=== PATIENT | male | born 1970 | race Caucasian/White ===

== ENCOUNTER → 2020-03-19 | Outpatient (CLI) | payer MEDICARE, BC ==
[~2020-03-19] MED LIST: LIDOCAINE 1% MDV 20ML VIAL As Ordered ONE; LIPI20TA PO; VELP5CHW PO; VITAD400CA FT
[2020-03-19 15:55] VITALS: BP 127/72
--- NOTE | 2020-03-21 11:30 | POST-OPPD ---
Postoperative Procedure Note Date Of Procedure: Mar 19, 2020 Time Of Procedure: 16:00 IR PermCath removal. Clinical indication: Renal failure. Now has working fistula for dialysis. The PermCath site was prepped and draped in the usual sterile fashion. Lidocaine was used for local anesthesia. The catheter cuff was dissected out of the soft tissues using blunt dissection. The catheter was removed in it's entirety. Patient tolerated the procedure well, hemostasis achieved and a sterile dressing was applied to the site. Blood loss: Less than 5 mL. Complications: None. Impression: Successful removal of PermCath. ABNG GERARDO MD Mar 21, 2020 11:30
== END ==
LOC: M IRPRO 14:05
PROVIDERS: ATTEND Radiology Diagnostic Radiology
DX: Z45.2 Encounter for adjustment and management of vascular access device (principal); N18.6 End stage renal disease

== ENCOUNTER 2020-12-15 20:22 | Emergency (ER) | payer MEDICARE, BC ==
[~2020-12-15] VITALS: Ht 167.6 cm; Wt 137.3 kg
[~2020-12-15 20:22] MED LIST changes: -LIDOCAINE 1% MDV 20ML VIAL As Ordered ONE
[2020-12-15] MEDS ORDERED: LEVO200T4 PO (20:42)
[2020-12-16] MEDS ORDERED: ONDANSETRON 4MG/2ML VIAL IV ONE (07:40)
[2020-12-16] MEDS ORDERED: NS 1,000 ML IV ONE (07:40)
[2020-12-16] MEDS ORDERED: MORPHINE 2 MG/ML 1ML VIAL (J2270) IV ONE (07:40)
[2020-12-16 09:06] LABS: BASO % 0.5 % (0.0-1.0); EOS # 0.2 10^3/uL (0.0-0.5); EOS % 2.9 % (0.0-3.0); HEMATOCRIT 31.2 % (42.0-52.0); HEMOGLOBIN 9.9 g/dl (13.5-17.5); LYMPH # 1.6 10^3/uL (1.5-5.0); LYMPH % 21.3 % (24.0-44.0); MEAN CORPUSCULAR HEMOGLOBIN 33.8 pg (27.0-33.0); MEAN CORPUSCULAR HGB CONC 31.7 g/dl (32.0-36.5); MEAN CORPUSCULAR VOLUME 106.5 fl (80.0-96.0); MONO # 0.6 10^3/uL (0.0-0.8); MONO % 7.4 % (2.0-8.0); NEUTROPHILS # 5.1 10^3/uL (1.5-8.5); NEUTROPHILS % 67.4 % (36.0-66.0); PLATELET COUNT, AUTOMATED 152 10^3/uL (150-450); RED BLOOD COUNT 2.93 10^6/uL (4.30-6.10); WHITE BLOOD COUNT 7.6 10^3/uL (4.0-10.0)
[2020-12-16 10:10] LABS: ALBUMIN 3.3 GM/DL (3.2-5.2); BILIRUBIN,DIRECT 0.2 MG/DL (0.0-0.2); BILIRUBIN,TOTAL 0.7 MG/DL (0.2-1.0); CALCIUM LEVEL 8.6 MG/DL (8.5-10.1); CREATININE FOR GFR 7.82 MG/DL (0.70-1.30); GLOMERULAR FILTRATION RATE 7.8 (>56); POTASSIUM SERUM 4.3 MEQ/L (3.5-5.1); TOTAL PROTEIN 6.6 GM/DL (6.4-8.2)
[2020-12-16 10:11] LABS: FREE T4 1.07 NG/DL (0.76-1.46); THYROID STIMULATING HORMONE 20.8 uIU/ML (0.358-3.740)
[2020-12-16] MEDS ORDERED: EMLA CREAM 5GM TUBE (LIDOCAINE/PRILOCAINE) TOP ONE (11:15)
--- NOTE | 2020-12-16 12:46 | REP ---
INDICATION: RLQ pain. COMPARISON: None. TECHNIQUE: Standard helical technique without contrast FINDINGS: The lung bases are clear. Limited evaluation of the solid intra-abdominal organs shows diffuse low density throughout the hepatic parenchyma. The liver and spleen are otherwise unremarkable. The pancreas and adrenal glands are unremarkable. There is marked right renal atrophy. The patient is status post left nephrectomy. The abdominal aorta and para-aortic regions are within normal limits. Postop changes from a ventral herniorrhaphy are noted. There is no free fluid or free air. There is thickening of the parr of the sigmoid colon with Treva sigmoidal fatty infiltration. The imaged osseous structures are within normal limits. IMPRESSION: 1. There is sigmoid colon diverticulitis. 2. There is diffuse fatty infiltration of the liver. 3. Chronic changes as described above. <Electronically signed by Dave Rothman > 12/16/20 [id number]
[2020-12-16] MEDS ORDERED: FLAG500T PO (13:45)
[2020-12-16 14:28] VITALS: BP 126/74
[2020-12-16] MEDS ORDERED: CIPR-249 PO (14:44)
== END 2020-12-16 14:56 | disposition home or self-care (01) ==
LOC: M ED 20:22
DX: K57.90 Diverticulosis of intestine, part unspecified, without perforation or abscess without bleeding (principal); I12.0 Hypertensive chronic kidney disease with stage 5 chronic kidney disease or end stage renal disease; N18.6 End stage renal disease; E03.9 Hypothyroidism, unspecified; E78.5 Hyperlipidemia, unspecified; F41.9 Anxiety disorder, unspecified; K21.9 Gastro-esophageal reflux disease without esophagitis; G47.33 Obstructive sleep apnea (adult) (pediatric); E66.9 Obesity, unspecified; Z79.899 Other long term (current) drug therapy; Z79.890 Hormone replacement therapy; Z87.891 Personal history of nicotine dependence
CPT/HCPCS: 36415; 74176; 80048; 80076; 83605; 83690; 84439; 84443; 85025; 96361; 96374; 96375; 99284; J2270; J2405

== ENCOUNTER 2021-02-19 13:04 | Inpatient (IN) | payer MEDICARE, BC ==
[~2021-02-19] VITALS: Ht 172.7 cm; Wt 138.8 kg
[~2021-02-19 13:04] MED LIST changes: +CIPR-249 PO; +FLAG500T PO; +LEVO200T4 PO
[2021-02-19] MEDS ORDERED: ALPR0.5T3 (13:19)
[2021-02-19] MEDS ORDERED: ATOR1TAB21 (13:20)
[2021-02-19] MEDS ORDERED: FOLI400T13 PO (13:21)
[2021-02-19] MEDS ORDERED: VANCOMYCIN HCL 2,000 MG in IV FLUID PLACE HOLDER 1 EA IV ONE (21:05)
[2021-02-19] MEDS ORDERED: VANCOMYCIN HCL 1,000 MG, VIAL MATE ADAPTER 1 EACH in NS 250 ML IV ONE ×2 (21:10→22:10)
[2021-02-19] MEDS ORDERED: diphenhydrAMINE 50MG/ML VIAL (J1200) IV ONE (23:40)
[2021-02-20 00:04] LABS: ALBUMIN 3.6 GM/DL (3.2-5.2); BILIRUBIN,DIRECT 0.3 MG/DL (0.0-0.2); BILIRUBIN,TOTAL 0.6 MG/DL (0.2-1.0); C REACTIVE PROTEIN QUANTITATIV 6.79 MG/DL (0.00-0.30); CALCIUM LEVEL 8.9 MG/DL (8.5-10.1); CREATININE FOR GFR 12.9 MG/DL (0.70-1.30); GLOMERULAR FILTRATION RATE 4.4 (>56); POTASSIUM SERUM 4.8 MEQ/L (3.5-5.1); TOTAL PROTEIN 7.1 GM/DL (6.4-8.2)
[2021-02-20 00:14] LABS: RSV AMPLIFICATION NEGATIVE (NEGATIVE)
[2021-02-20] MEDS ORDERED: ONDANSETRON 4MG/2ML VIAL IV PRN (00:20)
[2021-02-20] MEDS ORDERED: VANCOMYCIN HCL 1,000 MG, VIAL MATE ADAPTER 1 EACH in NS 250 ML IV SCH (01:15)
[2021-02-20] MEDS ORDERED: VANCOMYCIN INTERMITTENT/PULSE DOSING BY CLINICAL PHARMACIST PER DOSING PROTOCOL XX SCH (01:15)
[2021-02-20] MEDS ORDERED: ALPR0.5T3 PO (01:30)
[2021-02-20] MEDS ORDERED: PROAAER10 INH (01:30)
[2021-02-20] MEDS ORDERED: SYNT25TA PO (01:30)
[2021-02-20] MEDS ORDERED: VITATAB73 PO (01:30)
[2021-02-20] MEDS ORDERED: HOME MED LIST COMPLETE! XX SCH (01:30)
[2021-02-20] MEDS ORDERED: LIDO1CRE42 TOP (01:30)
[2021-02-20] MEDS ORDERED: ATOR1TAB21 PO (01:30)
[2021-02-20] MEDS ORDERED: D31000TA2 PO (01:30)
[2021-02-20] MEDS ORDERED: LEVO2TA PO (01:30)
[2021-02-20] MEDS ORDERED: VELP5CHW PO (01:30)
[2021-02-20] MEDS ORDERED: LANT1000 PO (01:30)
[2021-02-20] MEDS ORDERED: FOLI400T5 PO (01:30)
[2021-02-20] MEDS: PIPERACILLIN/TAZOBACTAM SOD 2.25 GM in D5W MINI-BAG PLUS 50 ML IV SCH ×3 (03:42→19:51)
[2021-02-20] MEDS ORDERED: ALBUTEROL 90 MCG/ACT 8GM HFA INHALER INH PRN (05:25)
[2021-02-20 06:12] LABS: BASO % 0.6 % (0.0-1.0); EOS # 0.2 10^3/uL (0.0-0.5); HEMATOCRIT 35.8 % (42.0-52.0); HEMOGLOBIN 11.3 g/dl (13.5-17.5); LYMPH # 1.6 10^3/uL (1.5-5.0); MEAN CORPUSCULAR HEMOGLOBIN 33.1 pg (27.0-33.0); MEAN CORPUSCULAR HGB CONC 31.6 g/dl (32.0-36.5); MONO # 0.5 10^3/uL (0.0-0.8); MONO % 6.6 % (2.0-8.0); NEUTROPHILS # 4.7 10^3/uL (1.5-8.5); NEUTROPHILS % 66.5 % (36.0-66.0); PLATELET COUNT, AUTOMATED 133 10^3/uL (150-450); RED BLOOD COUNT 3.41 10^6/uL (4.30-6.10)
[2021-02-20 06:31] LABS: CALCIUM LEVEL 8.2 MG/DL (8.5-10.1); CREATININE FOR GFR 13.7 MG/DL (0.70-1.30); GLOMERULAR FILTRATION RATE 4.1 (>56); POTASSIUM SERUM 4.6 MEQ/L (3.5-5.1); VANCOMYCIN RANDOM 33.1 UG/ML
[2021-02-20] MEDS ORDERED: HEPARIN SOD (PORCINE) 5000UNITS/ML 1ML VIAL/SYRINGE SQ SCH (08:00)
[2021-02-20] MEDS: LACTOBACILLUS ACIDOPHILUS CAP (BACID) PO SCH (08:53)
[2021-02-20] MEDS ORDERED: APIXABAN 5 MG TAB (ELIQUIS) PO SCH (09:00)
[2021-02-20] MEDS: SUCROFERRIC OXYHYDROXIDE 500MG CHEW TAB (VELPHORO) PO SCH ×3 (09:11→18:59)
[2021-02-20] MEDS ORDERED: SODIUM CHLORIDE 0.9% 1000ML IV PRN (09:15)
[2021-02-20] MEDS ORDERED: MIDAZOLAM INJ 2MG/2ML VIAL (J2250 PER 1MG) As Ordered ONE ×2 (11:04→11:37)
[2021-02-20] MEDS ORDERED: LIDOCAINE 1% MDV 20ML VIAL As Ordered ONE ×2 (11:04→11:19)
[2021-02-20] MEDS ORDERED: fentaNYL 100 MCG/2 ML INJECTION As Ordered ONE ×3 (11:04→13:09)
[2021-02-20] MEDS ORDERED: ISOVUE-300 61% 50ML VIAL As Ordered ONE (11:05)
[2021-02-20] MEDS ORDERED: LIDOCAINE W/EPINEPHRINE 1% 20ML VIAL As Ordered ONE (13:12)
[2021-02-20 18:45] VITALS: BP 120/66
[2021-02-20] MEDS: **VANCO AFTER HD** MISC XX SCH (19:01)
[2021-02-20] MEDS: ATORVASTATIN 20 MG TAB PO SCH (20:56)
[2021-02-20] MEDS: LEVOTHYROXINE 100MCG TABLET (0.1MG) PO SCH (20:56)
[2021-02-20] MEDS: FOLIC ACID 1 MG TAB PO SCH (20:56)
[2021-02-20] MEDS: LEVOTHYROXINE 25MCG TABLET (0.025MG) PO SCH (20:56)
[2021-02-20] MEDS: APIXABAN 5 MG TAB (ELIQUIS) PO SCH (20:56)
[2021-02-20] MEDS: VITAMIN D 1,000 INTERNATIONAL UNITS TABLET PO SCH (20:56)
[2021-02-20] MEDS ORDERED: traMADol 50 MG TAB PO ONE (22:40)
[2021-02-20 23:50] VITALS: BP 123/66
[2021-02-21] MEDS: PIPERACILLIN/TAZOBACTAM SOD 2.25 GM in D5W MINI-BAG PLUS 50 ML IV SCH ×3 (03:26→21:00)
[2021-02-21 06:00] VITALS: BP 126/63
[2021-02-21] MEDS ORDERED: SODIUM CHLORIDE 0.9% 1000ML IV PRN (07:45)
[2021-02-21] MEDS: LACTOBACILLUS ACIDOPHILUS CAP (BACID) PO SCH (08:14)
[2021-02-21] MEDS: APIXABAN 5 MG TAB (ELIQUIS) PO SCH ×2 (08:14→21:00)
[2021-02-21] MEDS: SUCROFERRIC OXYHYDROXIDE 500MG CHEW TAB (VELPHORO) PO SCH ×3 (09:00→17:13)
[2021-02-21 10:24] LABS: BASO % 0.4 % (0.0-1.0); EOS # 0.2 10^3/uL (0.0-0.5); EOS % 3.1 % (0.0-3.0); HEMOGLOBIN 10.5 g/dl (13.5-17.5); LYMPH # 1.2 10^3/uL (1.5-5.0); LYMPH % 17.5 % (24.0-44.0); MEAN CORPUSCULAR HEMOGLOBIN 32.8 pg (27.0-33.0); MEAN CORPUSCULAR HGB CONC 31.8 g/dl (32.0-36.5); MEAN CORPUSCULAR VOLUME 103.1 fl (80.0-96.0); MONO # 0.3 10^3/uL (0.0-0.8); MONO % 4.4 % (2.0-8.0); NEUTROPHILS # 5.2 10^3/uL (1.5-8.5); NEUTROPHILS % 74.2 % (36.0-66.0); PLATELET COUNT, AUTOMATED 148 10^3/uL (150-450)
[2021-02-21 11:20] LABS: CALCIUM LEVEL 8.8 MG/DL (8.5-10.1); CREATININE FOR GFR 10.6 MG/DL (0.70-1.30); GLOMERULAR FILTRATION RATE 5.5 (>56); MAGNESIUM LEVEL 2.2 MG/DL (1.8-2.4); PHOSPHORUS LEVEL 5.7 MG/DL (2.5-4.9); POTASSIUM SERUM 4.1 MEQ/L (3.5-5.1); VANCOMYCIN RANDOM 27.6 UG/ML
[2021-02-21 13:23] VITALS: BP_SYST 124; BP_SYST 129; BP_DIAS 66; BP_DIAS 73
[2021-02-21] MEDS: **VANCO AFTER HD** MISC XX SCH (15:42)
[2021-02-21] MEDS: VITAMIN D 1,000 INTERNATIONAL UNITS TABLET PO SCH (21:00)
[2021-02-21] MEDS: LEVOTHYROXINE 100MCG TABLET (0.1MG) PO SCH (21:00)
[2021-02-21] MEDS: ATORVASTATIN 20 MG TAB PO SCH (21:00)
[2021-02-21] MEDS: LEVOTHYROXINE 25MCG TABLET (0.025MG) PO SCH (21:00)
[2021-02-21] MEDS: FOLIC ACID 1 MG TAB PO SCH (21:00)
[2021-02-21 22:00] VITALS: BP 133/75
[2021-02-22] MEDS: PIPERACILLIN/TAZOBACTAM SOD 2.25 GM in D5W MINI-BAG PLUS 50 ML IV SCH ×2 (04:53→10:29)
[2021-02-22 06:00] VITALS: BP 132/74
[2021-02-22 08:28] LABS: BASO # 0.1 10^3/uL (0.0-0.2); BASO % 0.7 % (0.0-1.0); EOS # 0.3 10^3/uL (0.0-0.5); HEMATOCRIT 35.1 % (42.0-52.0); LYMPH # 1.8 10^3/uL (1.5-5.0); LYMPH % 24.5 % (24.0-44.0); MEAN CORPUSCULAR HEMOGLOBIN 32.6 pg (27.0-33.0); MEAN CORPUSCULAR HGB CONC 31.3 g/dl (32.0-36.5); MEAN CORPUSCULAR VOLUME 104.2 fl (80.0-96.0); MONO # 0.5 10^3/uL (0.0-0.8); NEUTROPHILS # 4.6 10^3/uL (1.5-8.5); NEUTROPHILS % 63.3 % (36.0-66.0); PLATELET COUNT, AUTOMATED 169 10^3/uL (150-450); RED BLOOD COUNT 3.37 10^6/uL (4.30-6.10); WHITE BLOOD COUNT 7.3 10^3/uL (4.0-10.0)
[2021-02-22] MEDS: LACTOBACILLUS ACIDOPHILUS CAP (BACID) PO SCH (08:45)
[2021-02-22] MEDS: APIXABAN 5 MG TAB (ELIQUIS) PO SCH ×2 (08:45→20:47)
[2021-02-22] MEDS: SUCROFERRIC OXYHYDROXIDE 500MG CHEW TAB (VELPHORO) PO SCH ×3 (08:46→17:57)
[2021-02-22 08:54] LABS: CALCIUM LEVEL 9.3 MG/DL (8.5-10.1); CREATININE FOR GFR 10.4 MG/DL (0.70-1.30); GLOMERULAR FILTRATION RATE 5.6 (>56); POTASSIUM SERUM 4.8 MEQ/L (3.5-5.1)
[2021-02-22] MEDS: MORPHINE 2 MG/ML 1ML VIAL (J2270) IV PRN (10:21)
[2021-02-22 14:00] VITALS: BP 135/72
[2021-02-22] MEDS: **VANCO AFTER HD** MISC XX SCH (15:39)
[2021-02-22 19:18] VITALS: BP 142/72
[2021-02-22] MEDS: VITAMIN D 1,000 INTERNATIONAL UNITS TABLET PO SCH (20:47)
[2021-02-22] MEDS: LEVOTHYROXINE 25MCG TABLET (0.025MG) PO SCH (20:47)
[2021-02-22] MEDS: FOLIC ACID 1 MG TAB PO SCH (20:47)
[2021-02-22] MEDS: LEVOTHYROXINE 100MCG TABLET (0.1MG) PO SCH (20:47)
[2021-02-22] MEDS: ATORVASTATIN 20 MG TAB PO SCH (20:47)
[2021-02-23] MEDS: SUCROFERRIC OXYHYDROXIDE 500MG CHEW TAB (VELPHORO) PO SCH ×3 (05:17→17:55)
[2021-02-23 06:00] VITALS: BP 148/76
[2021-02-23] MEDS: LACTOBACILLUS ACIDOPHILUS CAP (BACID) PO SCH ×2 (06:20→11:54)
[2021-02-23 06:36] LABS: BASO # 0.1 10^3/uL (0.0-0.2); BASO % 0.7 % (0.0-1.0); EOS # 0.3 10^3/uL (0.0-0.5); EOS % 4.1 % (0.0-3.0); HEMATOCRIT 33.1 % (42.0-52.0); HEMOGLOBIN 10.4 g/dl (13.5-17.5); LYMPH # 1.8 10^3/uL (1.5-5.0); LYMPH % 25.1 % (24.0-44.0); MEAN CORPUSCULAR HEMOGLOBIN 32.5 pg (27.0-33.0); MEAN CORPUSCULAR HGB CONC 31.4 g/dl (32.0-36.5); MEAN CORPUSCULAR VOLUME 103.4 fl (80.0-96.0); MONO # 0.5 10^3/uL (0.0-0.8); MONO % 7.5 % (2.0-8.0); NEUTROPHILS # 4.4 10^3/uL (1.5-8.5); NEUTROPHILS % 61.3 % (36.0-66.0); PLATELET COUNT, AUTOMATED 175 10^3/uL (150-450); WHITE BLOOD COUNT 7.1 10^3/uL (4.0-10.0)
[2021-02-23 07:08] LABS: CALCIUM LEVEL 9.4 MG/DL (8.5-10.1); CREATININE FOR GFR 13.4 MG/DL (0.70-1.30); GLOMERULAR FILTRATION RATE 4.2 (>56); MAGNESIUM LEVEL 2.6 MG/DL (1.8-2.4); PHOSPHORUS LEVEL 5.1 MG/DL (2.5-4.9); POTASSIUM SERUM 5.3 MEQ/L (3.5-5.1)
[2021-02-23] MEDS ORDERED: SODIUM CHLORIDE 0.9% 1000ML IV PRN (08:05)
[2021-02-23] MEDS ORDERED: LIDOCAINE 1% SDV 5ML VIAL SC PRN (08:05)
[2021-02-23] MEDS ORDERED: MIDAZOLAM INJ 2MG/2ML VIAL (J2250 PER 1MG) As Ordered ONE ×2 (08:15→09:45)
[2021-02-23] MEDS ORDERED: fentaNYL 100 MCG/2 ML INJECTION As Ordered ONE ×2 (08:15→09:56)
[2021-02-23] MEDS ORDERED: LIDOCAINE 1% MDV 20ML VIAL As Ordered ONE ×2 (08:16→09:56)
[2021-02-23] MEDS: APIXABAN 5 MG TAB (ELIQUIS) PO SCH ×2 (11:55→21:00)
[2021-02-23] MEDS: MORPHINE 2 MG/ML 1ML VIAL (J2270) IV PRN (11:56)
[2021-02-23] MEDS: **VANCO AFTER HD** MISC XX SCH (16:00)
[2021-02-23 16:28] VITALS: BP 141/75
[2021-02-23 16:48] VITALS: BP 159/97
[2021-02-23] MEDS ORDERED: traMADol 50 MG TAB PO PRN (19:15)
[2021-02-23] MEDS: VITAMIN D 1,000 INTERNATIONAL UNITS TABLET PO SCH (20:51)
[2021-02-23] MEDS: FOLIC ACID 1 MG TAB PO SCH (20:51)
[2021-02-23] MEDS: LEVOTHYROXINE 100MCG TABLET (0.1MG) PO SCH (20:51)
[2021-02-23] MEDS: LEVOTHYROXINE 25MCG TABLET (0.025MG) PO SCH (20:51)
[2021-02-23] MEDS: ATORVASTATIN 20 MG TAB PO SCH (20:51)
[2021-02-23 21:14] LABS: HEMATOCRIT 34.9 % (42.0-52.0); HEMOGLOBIN 11.1 g/dl (13.5-17.5)
[2021-02-23 21:49] LABS: CALCIUM LEVEL 8.9 MG/DL (8.5-10.1); CREATININE FOR GFR 9.29 MG/DL (0.70-1.30); GLOMERULAR FILTRATION RATE 6.4 (>56)
[2021-02-23 21:56] LABS: POTASSIUM SERUM 4.1 MEQ/L (3.5-5.1)
[2021-02-23 22:00] VITALS: BP 161/69
[2021-02-24 06:00] VITALS: BP 134/57
[2021-02-24] MEDS ORDERED: SODIUM CHLORIDE 0.9% 1000ML IV PRN (07:45)
[2021-02-24] MEDS ORDERED: LIDOCAINE 1% SDV 5ML VIAL SC PRN (07:45)
[2021-02-24 08:30] VITALS: BP 101/75
[2021-02-24] MEDS: SUCROFERRIC OXYHYDROXIDE 500MG CHEW TAB (VELPHORO) PO SCH ×2 (09:27→14:27)
[2021-02-24 10:34] LABS: HEMATOCRIT 31.7 % (42.0-52.0); HEMOGLOBIN 9.9 g/dl (13.5-17.5); MEAN CORPUSCULAR HEMOGLOBIN 32.4 pg (27.0-33.0); MEAN CORPUSCULAR HGB CONC 31.2 g/dl (32.0-36.5); MEAN CORPUSCULAR VOLUME 103.6 fl (80.0-96.0); PLATELET COUNT, AUTOMATED 207 10^3/uL (150-450); RED BLOOD COUNT 3.06 10^6/uL (4.30-6.10); WHITE BLOOD COUNT 8.1 10^3/uL (4.0-10.0)
[2021-02-24 11:23] LABS: ALBUMIN 3.1 GM/DL (3.2-5.2); CALCIUM LEVEL 8.9 MG/DL (8.5-10.1); CREATININE FOR GFR 11.3 MG/DL (0.70-1.30); GLOMERULAR FILTRATION RATE 5.1 (>56); PHOSPHORUS LEVEL 5.1 MG/DL (2.5-4.9); POTASSIUM SERUM 4.6 MEQ/L (3.5-5.1)
[2021-02-24 14:00] VITALS: BP 125/59
[2021-02-24] MEDS ORDERED: ELIQ5TAB PO (14:12)
[2021-02-24] MEDS ORDERED: VANC1PIG IV (14:16)
[2021-02-24] MEDS: APIXABAN 5 MG TAB (ELIQUIS) PO SCH (14:59)
== END 2021-02-24 18:23 | disposition home or self-care (01) | DRG 314 ==
LOC: M ED 13:04 → EEVIPCON 23:56 → M ED INP 23:56 → ENRESERV 02-20 12:48 → M MSPAV 02-20 18:39
PROVIDERS: ADMIT Internal Medicine; ATTEND Internal Medicine
PROC: 0JH60XZ Insertion of Tunneled Vascular Access Device into Chest Subcutaneous Tissue and Fascia, Open Approach (ICD-10-PCS; 2021-02-20)
PROC: 02H733Z Insertion of Infusion Device into Left Atrium, Percutaneous Approach (ICD-10-PCS; 2021-02-20)
PROC: 0HBEXZX Excision of Left Lower Arm Skin, External Approach, Diagnostic (ICD-10-PCS; 2021-02-20)
PROC: 5A1D70Z Performance of Urinary Filtration, Intermittent, Less than 6 Hours Per Day (ICD-10-PCS; 2021-02-21)
PROC: 02HV33Z Insertion of Infusion Device into Superior Vena Cava, Percutaneous Approach (ICD-10-PCS; 2021-02-23)
PROC: 0JH63XZ Insertion of Tunneled Vascular Access Device into Chest Subcutaneous Tissue and Fascia, Percutaneous Approach (ICD-10-PCS; 2021-02-23)
PROC: 05PY33Z Removal of Infusion Device from Upper Vein, Percutaneous Approach (ICD-10-PCS; principal; 2021-02-23 09:00)
DX: T82.868A Thrombosis due to vascular prosthetic devices, implants and grafts, initial encounter (principal); N18.6 End stage renal disease; I12.0 Hypertensive chronic kidney disease with stage 5 chronic kidney disease or end stage renal disease; L03.114 Cellulitis of left upper limb; Z68.42 Body mass index [BMI] 45.0-49.9, adult; D62 Acute posthemorrhagic anemia; T82.7XXA Infection and inflammatory reaction due to other cardiac and vascular devices, implants and grafts, initial encounter; Y83.1 Surgical operation with implant of artificial internal device as the cause of abnormal reaction of the patient, or of later complication, without mention of misadventure at the time of the procedure; E66.9 Obesity, unspecified; G47.33 Obstructive sleep apnea (adult) (pediatric); E78.5 Hyperlipidemia, unspecified; K21.9 Gastro-esophageal reflux disease without esophagitis; B95.62 Methicillin resistant Staphylococcus aureus infection as the cause of diseases classified elsewhere; F41.9 Anxiety disorder, unspecified; K57.90 Diverticulosis of intestine, part unspecified, without perforation or abscess without bleeding; K76.0 Fatty (change of) liver, not elsewhere classified; Z90.5 Acquired absence of kidney; Z87.891 Personal history of nicotine dependence; Z99.2 Dependence on renal dialysis; Z79.899 Other long term (current) drug therapy; Z20.822 Contact with and (suspected) exposure to COVID-19

== ENCOUNTER → 2021-03-10 | Outpatient (CLI) | payer MEDICARE, BC ==
[~2021-03-10] MED LIST changes: +ALPR0.5T3; +ALPR0.5T3 PO; +ATOR1TAB21; +ATOR1TAB21 PO; +D31000TA2 PO; +ELIQ5TAB PO; +FOLI400T13 PO; +FOLI400T5 PO; +LANT1000 PO; +LEVO2TA PO; +LIDO1CRE42 TOP; +PROAAER10 INH; +SYNT25TA PO; +VANC1PIG IV; +VITATAB73 PO
--- NOTE | 2021-03-10 11:43 | REP ---
INDICATION: ESRD DEP ON RENAL DIALYSIS COMPARISON: 02/19/2021. TECHNIQUE: Real time sonographic evaluation and duplex Doppler evaluation of the Bilateral upper extremity arterial systems is performed. FINDINGS: Bilaterally there is mild plaquing and narrowing of the arterial systems with no evidence of hemodynamically significant stenosis. There is no arterial occlusion. There is a fistula in the right distal forearm which is thrombosed. There is a thrombosed graft in the left upper extremity extending from the level of the distal humerus to the mid forearm adjacent to the radial artery. Right arterial structures: Peak systolic velocity (cm/s)/waveform Distal subclavian: 65.1/monophasic Axillary: 122/triphasic Proximal brachial: 75.3/triphasic Mid brachial: 49.4/triphasic Distal brachial: 66.4/triphasic Proximal radial: 32.9/triphasic Distal radial: 38.5/triphasic Proximal ulnar:51.5/triphasic Distal ulnar: 118/triphasic Left arterial structures: Peak systolic velocity (cm/s)/waveform Distal subclavian: Not visualized due to overlying bandage. Axillary: 109/triphasic Proximal brachial: 84.5/triphasic Mid brachial: 63.4/triphasic Distal brachial: 56.5/triphasic Proximal radial: 79.1/triphasic Distal radial: 61.4/triphasic Proximal ulnar:53.1/triphasic Distal ulnar: 83.1/triphasic IMPRESSION: No evidence of hemodynamically significant stenosis and no evidence of occlusion of the upper extremity arterial systems bilaterally. <Electronically signed by Reji Pascal > 03/10/21 [id number]
== END ==
LOC: M RAD 10:04
PROVIDERS: ATTEND Surgery Vascular Surgery
DX: N18.6 End stage renal disease (principal); Z99.2 Dependence on renal dialysis; I74.2 Embolism and thrombosis of arteries of the upper extremities